=== PATIENT | male | born 1970 | race Caucasian/White ===

== ENCOUNTER 2017-03-10 20:37 | Emergency (ER) | payer MEDICAID ==
[~2017-03-10] VITALS: Ht 175.3 cm; Wt 91.0 kg
[~2017-03-10 20:37] MED LIST: ASPI-1159 PO; BENA10TA3 PO; CEPH500C2 PO; GABA-531 PO; GLIM4TAB2 PO; METF500T4 PO
[2017-03-11 06:05] VITALS: BP 131/74
== END 2017-03-11 06:21 | disposition home or self-care (01) ==
LOC: ER 20:38
DX: S92.402A Displaced unspecified fracture of left great toe, initial encounter for closed fracture (principal); F17.200 Nicotine dependence, unspecified, uncomplicated; E11.9 Type 2 diabetes mellitus without complications; I10 Essential (primary) hypertension; Z79.82 Long term (current) use of aspirin; X58.XXXA Exposure to other specified factors, initial encounter; Y93.89 Activity, other specified; Y92.89 Other specified places as the place of occurrence of the external cause; Y99.8 Other external cause status
CPT/HCPCS: 29515; 73630; 99284